=== PATIENT | female | born 1950 | race Caucasian/White ===

== ENCOUNTER 2017-10-03 13:37 | Inpatient (IN) ==
[2017-10-03] MEDS ORDERED: *HR* FentaNYL (PF) 100 MCG/2 ML VIAL ONE (13:52)
--- NOTE | 2017-10-03 13:55 | Emergency Department Note ---
Disposition Clinical Impression: Acute pyelonephritis UTI (urinary tract infection) Qualifiers: Urinary tract infection type: site unspecified Hematuria presence: with hematuria Qualified Code(s): N39.0 - Urinary tract infection, site not specified Disposition: Admitted As Inpatient Abdominal Pain HPI - General Chief Complaint: ED Abdominal Pain Stated Complaint: abd pain/burning with urinaiton Time Seen by Provider: 10/03/17 13:43 Source: patient Mode of arrival: ambulatory Limitations: no limitations Nursing Notes Reviewed: Yes Vital Signs Reviewed: Yes - History of Present Illness HPI Narrative: 67-year-old insulin-dependent diabetic presents with about a week of dysuria, left back pain and abdominal pain. Lower quadrant. Patient has a history of fever and chills as well. Patient's concerned that she might have UTI. Patient has been having worsening dysuria. She states her pain in her back and in her left lower quadrant and suprapubic is at 8 out of 10 and worse with urination.denies diarrhea nausea vomiting constipation. Pt Subjective Complaint: abdominal pain Onset (ago): day(s) Consistency: intermittent Location: L flank Pain Severity: severe Pain Scale: 10 Quality: cramping, aching Radiation: LLQ Migration to: suprapubic Improves with: nothing Worsens with: nothing Associated symptoms: Reports: nausea. Denies: vomiting, diarrhea, fever, chills , hematemesis, hematochezia Treatments prior to arrival: none - Related Data Home Medications Medication Instructions Recorded Confirmed Amlodipine Besylate 10 mg PO DAILY 10/03/17 10/03/17 Atorvastatin Calcium [Lipitor] 80 mg PO HS 10/03/17 10/03/17 Ezetimibe [Zetia] 10 mg PO DAILY 10/03/17 10/03/17 Febuxostat [Uloric] 80 mg PO DAILY 10/03/17 10/03/17 Furosemide [Lasix] 40 mg PO BID 10/03/17 10/03/17 Insulin ASPART [NovoLOG] 45 - 50 unit SQ TID 10/03/17 10/03/17 Insulin DETEMIR [Levemir] 20 unit SQ QAM 10/03/17 10/03/17 Insulin DETEMIR [Levemir] 80 unit SQ QPM 10/03/17 10/03/17 Labetalol HCl 300 mg PO BID 10/03/17 10/03/17 Levothyroxine Sodium [Levoxyl] 112 mcg PO DAILY 10/03/17 10/03/17 Linagliptin [Tradjenta] 5 mg PO DAILY 10/03/17 10/03/17 Losartan [Cozaar] 25 mg PO DAILY 10/03/17 10/03/17 Tolterodine Tartrate [Detrol] 2 mg PO BID 10/03/17 10/03/17 hydroCHLOROthiazide 25 mg PO DAILY 10/03/17 10/03/17 [Hydrochlorothiazide] Allergies Allergy/AdvReac Type Severity Reaction Status Date / Time ciprofloxacin [From Cipro] Allergy Vomiting Verified 09/30/15 09:45 All systems ED: reviewed and negative except as stated. Review of Systems: As Per HPI Constitutional: Reports: fever, chills Eyes: Denies: eye pain ENT ED: Denies: ear pain Cardiovascular: Denies: chest pain Respiratory: Denies: cough Gastrointestinal: Reports: as per HPI, abdominal pain, nausea. Denies: vomiting , hematemesis, melena Genitourinary: Reports: as per HPI, urgency, dysuria. Denies: frequency, hematuria Musculoskeletal: Denies: back pain, neck pain Integumentary: Denies: rash Neurological: Denies: headache Abdominal Pain PMH - Past Medical History Medical history: Reports: diabetes, hypertension, renal disease, other Female Surgical History: Reports: appendectomy, herniorrhaphy, knee replacement , other Psychiatric history: Reports: no psych history - Social History Smoking status: Former smoker Alcohol use: Reports: none Drug use: Reports: none Physical Exam Constitutional: Afebrile, tachypnea, mildly hypertensive. Obese middle-aged female in mod abdominal back pain HEENT: NCAT, sclera anicteric Neck: normal inspection, neck is supple, trachea midline Resp: normal chest inspection, CTA bilaterally, no resp distress CV: RRR, no m/g/r GI: normal inspection, Soft, mildly obese, mild suprapubic tenderness palpation no hepatosplenomegaly, BS x 4 quadrants, negative Botello's Sign, no tenderness at McBurney' point, Negative Rovsing's Back: normal inspection, positive left CVA tenderness Neuro: A&O3, no gross motor or sensory deficits bilaterally MSK: normal inspection, bilateral UE and LE with normal ROM Skin: No rashes, skin warm, dry, intact - General Limitations: no limitations General appearance: alert, in no apparent distress Course Course Narrative: 67-year-old female with concerns for possible diverticulitis versus pyelonephritis, CT scan basic lab work CBC BMP urinalysis were ordered, as well as pain medication for the patient, she appears like a possible admission depending on what the CT scan will find. CT noncontrast abdomen and pelvis ordered because of patient habitus. - Reevaluation(s) Reevaluation #1: Patient's evidence of pyelonephritis, urinary tract infection positive left flank pain, admitted to the hospitalist service Dr. Cazares Vital Signs Temperature 98.3 F 10/03/17 13:38 Pulse Rate 88 10/03/17 13:38 Respiratory Rate 18 10/03/17 13:38 Blood Pressure 194/75 10/03/17 13:38 O2 Sat by Pulse Oximetry 96 10/03/17 13:38 Temperature 98.0 F 10/03/17 16:45 Pulse Rate 92 10/03/17 16:45 Respiratory Rate 15 10/03/17 16:45 Blood Pressure 134/81 10/03/17 16:45 O2 Sat by Pulse Oximetry 94 10/03/17 16:45 Oxygen Delivery Oxygen Delivery Room Air Abdominal Pain - Differential Diagnosis Differential Diagnosis: Likely: abdominal pain non-specific, acute appendicitis , diverticulitis, diverticulosis - Medical Records Medical records reviewed: Yes I reviewed the patient's medical records. - Lab Data Lab results reviewed: Yes I reviewed the patient's lab results. Result diagrams: 10/03/17 13:55 10/03/17 13:55 Lab Results 10/03/17 10/03/17 10/03/17 Range/Units 13:55 13:55 13:55 WBC 13.3 H (4.3-11.1) K/mcL RBC 4.46 (3.82-4.97) M/mcL Hgb 12.7 (11.5-15.4) g/dL Hct 38.7 (35.3-44.9) % MCV 86.8 (83.0-100.0) fL MCH 28.5 (28.0-33.3) pg MCHC 32.8 (31.6-35.5) g/dL RDW 14.6 H (11.5-14.5) % Plt Count 362 (140-400) K/mcL MPV 9.9 (9.4-12.4) fL Immature Gran % 0.5 (0-4) % Seg Neutrophils % 84.2 % Lymphocytes % 8.9 % Monocytes % 5.3 % Eosinophils % 0.9 % Basophils % 0.2 % Neutrophils # 11.2 H (1.6-8.9) K/mcL Lymphocytes # 1.2 (0.6-4.6) K/mcL Monocytes # 0.7 (0.0-1.3) K/mcL Eosinophils # 0.1 (0.0-0.6) K/mcL Basophils # 0.0 (0.0-0.2) K/mcL Immature Plt Fraction 2.3 (1.1-6.1) % Sodium 136 (136-145) mEq/L Potassium 3.8 (3.5-5.1) mEq/L Chloride 98 (98-107) mEq/L Carbon Dioxide 26 (23-29) mEq/L BUN 57 H (8-23) mg/dL Creatinine 1.72 H (0.60-1.20) mg/dL Est GFR ( Amer) 36 L (> 60) Est GFR (Non-Af Amer) 30 L (> 60) BUN/Creatinine Ratio 33 H (6-26) Glucose 397 H (70-105) mg/dL Calculated Osmolality 314 H (280-300) Lactic Acid (0.5-2.2) mmol/L Calcium 10.2 (8.6-10.3) mg/dL Total Bilirubin 0.8 (0.3-1.0) mg/dL Direct Bilirubin 0.1 (0.0-0.2) mg/dL Indirect Bilirubin 0.7 (0.0-1.2) mg/dL AST 15 (13-39) Units/L ALT 18 (7-52) Units/L Alkaline Phosphatase 87 (34-104) Units/L Troponin I < 0.03 (< 0.04) ng/mL Serum Total Protein 6.8 (6.4-8.9) g/dL Albumin 3.9 (3.5-5.7) g/dL Globulin 2.9 (2.4-3.5) g/dL Albumin/Globulin Ratio 1.3 (1.1-2.2) Amylase 28 L (29-103) Units/L Lipase 64 (11-82) Units/L Urine Color (Yellow) Urine Clarity (Clear) Urine pH (5.0-8.0) pH Units Ur Specific [place] (1.010-1.025) Urine Protein (Neg-Trace) mg/dL Urine Glucose (UA) (Normal) mg/dL Urine Ketones (Negative) mg/dL Urine Blood (Negative) Urine Nitrite (Negative) Urine Bilirubin (Negative) Urine Urobilinogen (Normal) mg/dL Ur Leukocyte Esterase (Negative) Urine Microscopic RBC (0-3) per hpf Urine Microscopic WBC (0-3) per hpf Ur Squamous Epith Cells (None-Few) per lpf Urine Bacteria (None-Few) per hpf Ur Culture Indicated? (NO) 10/03/17 10/03/17 Range/Units 14:24 15:26 WBC (4.3-11.1) K/mcL RBC (3.82-4.97) M/mcL Hgb (11.5-15.4) g/dL Hct (35.3-44.9) % MCV (83.0-100.0) fL MCH (28.0-33.3) pg MCHC (31.6-35.5) g/dL RDW (11.5-14.5) % Plt Count (140-400) K/mcL MPV (9.4-12.4) fL Immature Gran % (0-4) % Seg Neutrophils % % Lymphocytes % % Monocytes % % Eosinophils % % Basophils % % Neutrophils # (1.6-8.9) K/mcL Lymphocytes # (0.6-4.6) K/mcL Monocytes # (0.0-1.3) K/mcL Eosinophils # (0.0-0.6) K/mcL Basophils # (0.0-0.2) K/mcL Immature Plt Fraction (1.1-6.1) % Sodium (136-145) mEq/L Potassium (3.5-5.1) mEq/L Chloride (98-107) mEq/L Carbon Dioxide (23-29) mEq/L BUN (8-23) mg/dL Creatinine (0.60-1.20) mg/dL Est GFR ( Amer) (> 60) Est GFR (Non-Af Amer) (> 60) BUN/Creatinine Ratio (6-26) Glucose (70-105) mg/dL Calculated Osmolality (280-300) Lactic Acid 2.7 H (0.5-2.2) mmol/L Calcium (8.6-10.3) mg/dL Total Bilirubin (0.3-1.0) mg/dL Direct Bilirubin (0.0-0.2) mg/dL Indirect Bilirubin (0.0-1.2) mg/dL AST (13-39) Units/L ALT (7-52) Units/L Alkaline Phosphatase (34-104) Units/L Troponin I (< 0.04) ng/mL Serum Total Protein (6.4-8.9) g/dL Albumin (3.5-5.7) g/dL Globulin (2.4-3.5) g/dL Albumin/Globulin Ratio (1.1-2.2) Amylase (29-103) Units/L Lipase (11-82) Units/L Urine Color Dark Yellow (Yellow) Urine Clarity Turbid A (Clear) Urine pH 6.5 (5.0-8.0) pH Units Ur Specific [place] 1.021 (1.010-1.025) Urine Protein 100 H (Neg-Trace) mg/dL Urine Glucose (UA) 500 H (Normal) mg/dL Urine Ketones Negative (Negative) mg/dL Urine Blood Large H (Negative) Urine Nitrite Positive A (Negative) Urine Bilirubin Negative (Negative) Urine Urobilinogen Normal (Normal) mg/dL Ur Leukocyte Esterase Large H (Negative) Urine Microscopic RBC 50-100 H (0-3) per hpf Urine Microscopic WBC TNTC H (0-3) per hpf Ur Squamous Epith Cells Many H (None-Few) per lpf Urine Bacteria Moderate H (None-Few) per hpf Ur Culture Indicated? NO. (NO) - Radiology Data Radiology results reviewed: Yes I reviewed the patient's radiology results. Abdomen/Pelvis CT 10/03/17 13:53 IMPRESSION: 1. No CT evidence of an acute intra-abdominal or intrapelvic process. 2. Hepatic steatosis. 3. Calcific atherosclerosis. 4. Bilateral L5 spondylolysis with grade 2 spondylolisthesis L5 on S1. 5. Cholelithiasis. No acute inflammatory changes evident. D/ / Kevin Cabrales / Kevin Cabrales Interpreting Provider: Kevin Cabrales - EKG Data EKG attestation: Yes I reviewed and interpreted this EKG. EKG shows normal: sinus rhythm Rate: normal (84 bpm [place] with 221 QRS [address] segment elevations or depressions.)
[2017-10-03] MEDS ORDERED: Ondansetron 4 MG/2 ML VIAL IVP ONE (13:57)
[2017-10-03] MEDS ORDERED: 0.9 % Sodium Chloride 1,000 ML IVC ONE ×2 (13:57→22:19)
[2017-10-03] MEDS ORDERED: *HR* FentaNYL (PF) 100 MCG/2 ML VIAL IVP ONE ×2 (13:57→15:27)
[2017-10-03] MEDS ORDERED: *HR* OxyCODONE/APAP 5/325 TABLET PO ONE (13:57)
--- NOTE | 2017-10-03 14:05 | Emergency Department Note ---
START Narrative - START START: I examined this patient and my medical decision-making was reviewed with the emergency medicine resident. I agree with the documented findings, disposition and treatment plan as described except to the extent set forth below. Patient seen with emergency medicine resident Dr. YUNIER HOYT, Please see a copy of his note for details of the H&P, ED evaluation, management and disposition. I have independently evaluated the patient and confirmed appropriate portions of the history and physical exam. Briefly: 67-year-old obese female presents via wheelchair from the waiting room with her spouse. Approximately one week of abdominal pain especially in the lower quadrants and some dysuria. No vomiting chest pain or shortness breath. She does have voluntary guarding the lower quadrants but no rebound. Patient with abdominal pelvic CT analgesics screening labs and urinalysis. Disposition pending
[2017-10-03 14:14] LABS: Basophils % 0.2 %; Eosinophils # 0.1 K/mcL (0.0-0.6); Eosinophils % 0.9 %; Hematocrit 38.7 % (35.3-44.9); Hemoglobin 12.7 g/dL (11.5-15.4); Immature Granulocytes % 0.5 % (0-4); Immature Platelets 2.3 % (1.1-6.1); Lymphocytes # 1.2 K/mcL (0.6-4.6); Lymphocytes % 8.9 %; Mean Corpuscular HGB Conc 32.8 g/dL (31.6-35.5); Mean Corpuscular Hemoglobin 28.5 pg (28.0-33.3); Mean Corpuscular Volume 86.8 fL (83.0-100.0); Mean Platelet Volume 9.9 fL (9.4-12.4); Monocytes # 0.7 K/mcL (0.0-1.3); Monocytes % 5.3 %; Neutrophils # 11.2 K/mcL (1.6-8.9); Platelet Count 362 K/mcL (140-400); Red Blood Count 4.46 M/mcL (3.82-4.97); Red Cell Distribution Width 14.6 % (11.5-14.5); Segmented Neutrophils % 84.2 %
[2017-10-03 14:35] LABS: Bilirubin,Urine Negative (Negative); Blood,Urine Large (Negative); Clarity,Urine Turbid (Clear); Color,Urine Dark Yellow (Yellow); Glucose,Urine (UA) 500 mg/dL (Normal); Ketones,Urine Negative (Negative); Leukocyte Esterase,Urine Large (Negative); Nitrite,Urine Positive (Negative); PH,Urine 6.5 pH Units (5.0-8.0); Protein,Urine 100 mg/dL (Neg-Trace); Specific Gravity,Urine 1.021 (1.010-1.025); Urobilinogen,Urine Normal (Normal)
[2017-10-03 14:36] LABS: Bacteria,Urine Moderate per hpf (None-Few); RBC,Urine 50-100 per hpf (0-3); Squamous Epithelial Cell,Urine Many per lpf (None-Few); WBC,Urine TNTC per hpf (0-3)
[2017-10-03 15:02] LABS: Albumin 3.9 g/dL (3.5-5.7); Albumin/Globulin Ratio 1.3 (1.1-2.2); Bilirubin,Direct 0.1 mg/dL (0.0-0.2); Bilirubin,Indirect 0.7 mg/dL (0.0-1.2); Bilirubin,Total 0.8 mg/dL (0.3-1.0); Calcium 10.2 mg/dL (8.6-10.3); Globulin 2.9 g/dL (2.4-3.5); Potassium 3.8 mEq/L (3.5-5.1); Total Protein 6.8 g/dL (6.4-8.9)
[2017-10-03] MEDS ORDERED: *HR* OxyCODONE Immed Rel 5 MG TABLET PO ONE (15:27)
[2017-10-03] MEDS ORDERED: Acetaminophen 325 MG TABLET PO PRN (15:33)
[2017-10-03] MEDS ORDERED: *HR* Dextrose 50 % in Water (Syg) 50 ML SYRINGE IVP PRN (15:33)
[2017-10-03] MEDS ORDERED: Dextrose Gel 15 GM/37.5 ML TUBE PO PRN ×2 (15:33)
[2017-10-03] MEDS ORDERED: Naloxone 0.4 MG/ML INJ IVP PRN (15:33)
[2017-10-03] MEDS ORDERED: D5% in Water 1,000 ML IVC PRN (15:33)
--- NOTE | 2017-10-03 15:48 | Internal Med History&Physical ---
Date of Encounter: 10/03/17 Time of Encounter: 15:45 Assessment and Plan (1) UTI (urinary tract infection) Current visit: Yes Status: Acute Admit the patient to hospitalist. Start ceftriaxone. Check lactic acid. Hold off IV fluids for now. Patient is hemodynamically stable. Follow up on cultures. Qualifiers: Urinary tract infection type: site unspecified Hematuria presence: with hematuria Qualified Code(s): N39.0 - Urinary tract infection, site not specified; R31.9 - Hematuria, unspecified; R31.9 - Hematuria, unspecified (2) Diabetes mellitus Current visit: Yes Status: Acute We will put the patient on her home Levemir. Start insulin sliding scale. Continue Accu-Cheks. The patient's glucose is elevated. 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 We will continue to monitor. (5) Hypothyroidism Current visit: Yes Status: Acute Continue home levothyroxine. Qualifiers: Hypothyroidism type: unspecified Qualified Code(s): E03.9 - Hypothyroidism , unspecified (6) Morbid obesity with BMI of 50.0-59.9, adult Current visit: Yes Status: Acute counseled. Dietary consult (7) DVT prophylaxis Current visit: Yes Status: Acute Heparin subcutaneous Internal Medicine - H&P: HPI Chief complaint: abdominal pain Admitted From: Home Plans for Post Hospital Care: Home History of present illness: Ms. Duckworth is a 67 year old female with PMH of hypothyroidism, DM, CKD3, HTN, morbid obesity who presents with abdominal pain and dysuria x1 week. pain is at the lower abdomen and goes to the left flank. Has significant burning and frequency as well. afebrile but feels cold. In the ED, patient was hemodynamically stable. CT A/P done with no acute findings. UA + for UTI. labs significant for WBC count of 13K, elevated creatinine consistent with baseline, glucose of 397. Given Hemodynamically stable. Afebrile. No fever/chills/nausea/ vomiting/chest pain/SOB/diarrhea/constipation/neurological symptoms. Past Med Surg Social Fam HX - Past Medical History Medical history: diabetes, hypertension, renal disease, other Psychiatric history: no psych history - Past Surgical History Surgical History: appendectomy, herniorrhaphy, knee replacement - Social History Smoking Status: Former smoker Smokeless Tobacco Status: No Alcohol use: none Drug use: none Internal Medicine - H&P: Meds Amlodipine Besylate 10 mg PO DAILY 10/03/17 [History] Atorvastatin Calcium [Lipitor] 80 mg PO HS 10/03/17 [History] Ezetimibe [Zetia] 10 mg PO DAILY 10/03/17 [History] Febuxostat [Uloric] 80 mg PO DAILY 10/03/17 [History] Furosemide [Lasix] 40 mg PO BID 10/03/17 [History] Insulin ASPART [NovoLOG] 45 - 50 unit SQ TID 10/03/17 [History] Insulin DETEMIR [Levemir] 20 unit SQ QAM 10/03/17 [History] Insulin DETEMIR [Levemir] 80 unit SQ QPM 10/03/17 [History] Labetalol HCl 300 mg PO BID 10/03/17 [History] Levothyroxine Sodium [Levoxyl] 112 mcg PO DAILY 10/03/17 [History] Linagliptin [Tradjenta] 5 mg PO DAILY 10/03/17 [History] Losartan [Cozaar] 25 mg PO DAILY 10/03/17 [History] Tolterodine Tartrate [Detrol] 2 mg PO BID 10/03/17 [History] hydroCHLOROthiazide [Hydrochlorothiazide] 25 mg PO DAILY 10/03/17 [History] 3 Allergy/AdvReac Type Severity Reaction Status Date / Time ciprofloxacin [From Cipro] Allergy Vomiting Verified 09/30/15 09:45 All Systems PM: A 10-system review of systems was performed and is negative for pertinent findings except as documented above in the HPI. Review of systems: All systems reviewed are negative except as mentioned above - Constitutional Vitals: Temp Pulse Resp BP Pulse Ox 98.3 F 92 22 157/80 97 10/03/17 13:38 10/03/17 14:35 10/03/17 14:35 10/03/17 14:35 10/03/17 14:35 Exam: GEN: NAD HEENT: AT, NC, No cyanosis, oral mucosa is moist, No JVD Lymphatics: No lymphadenoapthy Eyes: Extrocular muscles intact, anicteric CVS:RRR. S1, S2, No m/r/g RESP: CTAB ABD: Soft, hypogastric tenderness. Morbidly obese, ND, +BS EXT: No edema, No rashes, 2+ DP NEURO: Nonfocal, CN II-XII intact, No focal motor or sensory deficits Psych: Cooperative, Not anxious or depressed Internal Med - H&P Results - Labs CBC & Chem 7: 10/03/17 13:55 10/03/17 13:55 Labs: Short CBC 10/03/17 Range/Units 13:55 WBC 13.3 H (4.3-11.1) K/mcL Hgb 12.7 (11.5-15.4) g/dL Hct 38.7 (35.3-44.9) % Plt Count 362 (140-400) K/mcL Neutrophils # 11.2 H (1.6-8.9) K/mcL BMP 10/03/17 13:55 Sodium 136 Potassium 3.8 Chloride 98 Carbon Dioxide 26 BUN 57 H Creatinine 1.72 H Glucose 397 H Calcium 10.2 Cardiac Enzymes 10/03/17 Range/Units 13:55 Troponin I < 0.03 (< 0.04) ng/mL Liver Function 10/03/17 Range/Units 13:55 Total Bilirubin 0.8 (0.3-1.0) mg/dL Direct Bilirubin 0.1 (0.0-0.2) mg/dL AST 15 (13-39) Units/L ALT 18 (7-52) Units/L Alkaline Phosphatase 87 (34-104) Units/L Albumin 3.9 (3.5-5.7) g/dL Urine 10/03/17 Range/Units 14:24 Urine Color Dark Yellow (Yellow) Urine Clarity Turbid A (Clear) Urine pH 6.5 (5.0-8.0) pH Units Ur Specific [place] 1.021 (1.010-1.025) Urine Protein 100 H (Neg-Trace) mg/dL Urine Glucose (UA) 500 H (Normal) mg/dL - Impressions ITS Impressions Abdomen/Pelvis CT 10/03/17 13:53 IMPRESSION: 1. No CT evidence of an acute intra-abdominal or intrapelvic process. 2. Hepatic steatosis. 3. Calcific atherosclerosis. 4. Bilateral L5 spondylolysis with grade 2 spondylolisthesis L5 on S1. 5. Cholelithiasis. No acute inflammatory changes evident. D/ / Kevin Cabrales / Kevin Cabrales Interpreting Provider: Kevin Cabrales
[2017-10-03] MEDS: Insulin LISPRO 300 UNITS/3 ML VIAL SQ SCH ×2 (17:56→20:56)
[2017-10-03] MEDS ORDERED: Insulin DETEMIR 100 UNIT/ML X5UNITS SQ SCH (18:00)
[2017-10-03] MEDS ORDERED: cefTRIAXone 2,000 MG in Water for inj. (sterile) 20 ML 20 ML IVP ONE (18:00)
[2017-10-03] MEDS: Furosemide 40 MG TABLET PO SCH (20:56)
[2017-10-03] MEDS: *HR* Heparin 5,000 UNIT/ML VIAL SQ SCH (20:56)
--- NOTE | 2017-10-03 22:21 | Event Note ---
Date of Encounter: 10/03/17 Time of Encounter: 22:20 Lactic acid check came back at 2.7. Will bolus 1 L NS and start maintenance at 100 cc/hr. Repeat lactic acid in am.
[2017-10-03] MEDS: 0.9 % Sodium Chloride 1,000 ML IVC SCH (22:32)
[2017-10-04 05:02] LABS: Basophils % 0.3 %; Eosinophils # 0.1 K/mcL (0.0-0.6); Eosinophils % 1.2 %; Hematocrit 33.9 % (35.3-44.9); Hemoglobin 11.2 g/dL (11.5-15.4); Immature Granulocytes % 0.5 % (0-4); Lymphocytes # 1.5 K/mcL (0.6-4.6); Lymphocytes % 15.6 %; Mean Corpuscular Hemoglobin 28.6 pg (28.0-33.3); Mean Corpuscular Volume 86.5 fL (83.0-100.0); Mean Platelet Volume 9.6 fL (9.4-12.4); Monocytes # 0.7 K/mcL (0.0-1.3); Monocytes % 7.7 %; Platelet Count 272 K/mcL (140-400); Red Blood Count 3.92 M/mcL (3.82-4.97); Red Cell Distribution Width 14.8 % (11.5-14.5); Segmented Neutrophils % 74.7 %
[2017-10-04 05:17] LABS: Calcium 9.1 mg/dL (8.6-10.3); Magnesium 2.1 mg/dL (1.6-2.6); Potassium 3.4 mEq/L (3.5-5.1)
[2017-10-04] MEDS: *HR* Heparin 5,000 UNIT/ML VIAL SQ SCH ×3 (05:50→22:06)
[2017-10-04] MEDS: cefTRIAXone 1,000 MG in Water for inj. (sterile) 20 ML 10 ML IVP SCH (08:24)
[2017-10-04] MEDS: hydroCHLOROthiazide 25 MG TABLET PO SCH (08:25)
[2017-10-04] MEDS: Furosemide 40 MG TABLET PO SCH ×2 (08:25→22:06)
[2017-10-04] MEDS: amLODIPine 5 MG TABLET PO SCH (08:25)
[2017-10-04] MEDS: Insulin DETEMIR 100 UNIT/ML X5UNITS SQ SCH (08:26)
[2017-10-04] MEDS: (Ezetimibe [Zetia] 10 MG) PO SCH (08:26)
[2017-10-04] MEDS: (Febuxostat [Uloric] 80 MG) PO SCH (08:26)
[2017-10-04] MEDS: Insulin LISPRO 300 UNITS/3 ML VIAL SQ SCH ×4 (08:26→22:08)
[2017-10-04] MEDS: 0.9 % Sodium Chloride 1,000 ML IVC SCH (08:26)
--- NOTE | 2017-10-04 09:35 | Electrocardiograph Report ---
[place] [id number] Test Date: 2017-10-03 Pat Name: Christine Duckworth Department: 103 Room: 3A44 Gender: F Warehouse Analyst: JANET : 1950 Requested By: Rojelio Larsen Order Number: [id number] Reading MD: Vincenzo Patterson DO Measurements Intervals [place] Rate: 84 P: 52 DE: 221 QRS: -29 QRSD: 114 T: 75 QT: 362 QTc: 403 Interpretive Statements SINUS RHYTHM WITH FIRST DEGREE AV BLOCK POSSIBLE INFERIOR MYOCARDIAL INFARCTION, PROBABLY OLD Electronically Signed On 10-04-2017 9:34:02 EST by Vincenzo Patterson DO
--- NOTE | 2017-10-04 10:29 | Internal Med Progress Note ---
<Abdullahi Luna - Last Filed: 10/04/17 14:08> Date of Encounter: 10/04/17 Time of Encounter: 08:55 - Assessment and plan (1) UTI (urinary tract infection) Current Visit: Yes Status: Acute Assessment and plan: LLQ and L flank pain with associated dysuria. Patient notes symptoms at home for the past week, came to the ED because her was concerned she was getting worse. UA done in ED showing blood, protein, glucose, nitrates, leukocyte esterase, WBCs and bacteria; however many squamous epith ells noted. Urine culture sent. Patient was started on Rocephin, noting some improvement of dysuria. WBC improved from 13.3 to 9.4, Lactic Acid improved from 2.7 to 1.9 (careful with IVFs as patient notes issue with retaining fluid and is on daily lasix). -If improvement tomorrow, patient can likely be discharged home. Update: current urine culture growing GNR. Per past urine culture patient grew E. coli in Sep 2015 that was [place]ingo-sensitive. Qualifiers: Urinary tract infection type: site unspecified Hematuria presence: with hematuria Qualified Code(s): N39.0 - Urinary tract infection, site not specified (2) Diabetes mellitus Current Visit: Yes Status: Acute Assessment and plan: Continue home basal insulin + SSI. Qualifiers: Diabetes mellitus type: type 2 Diabetes mellitus complication status: with kidney complications Diabetes mellitus complication detail: with chronic kidney disease Diabetes mellitus [facility] insulin use: with terminal worker use Chronic kidney disease stage: stage 3 (moderate) Qualified Code(s): E11.22 - Type 2 diabetes mellitus with diabetic chronic kidney disease; N18.3 - Chronic kidney disease, stage 3 (moderate); N18.3 - Chronic kidney disease, stage 3 ( moderate); Z79.4 - adjunct faculty for medical terminology (current) use of insulin; Z79.4 - adjunct faculty for medical terminology ( current) use of insulin; Z79.4 - shelter (current) use of insulin; Z79.4 - shelter (current) use of insulin (3) Hypertension Current Visit: Yes Status: Acute Assessment and plan: BP well controlled, continue home medications. Qualifiers: Hypertension type: essential hypertension Qualified Code(s): I10 - Essential (primary) hypertension (4) CKD (chronic kidney disease) stage 3, GFR 30-59 ml/min Current Visit: Yes Status: Acute Assessment and plan: Stable at baseline, continue home medications. (5) Hypothyroidism Current Visit: Yes Status: Acute Assessment and plan: Cont home medication. Qualifiers: Hypothyroidism type: unspecified Qualified Code(s): E03.9 - Hypothyroidism , unspecified (6) Morbid obesity with BMI of 50.0-59.9, adult Current Visit: Yes Status: Chronic Assessment and plan: Counseled, dietary consulted and spoke to patient. (7) DVT prophylaxis Current Visit: Yes Status: Acute Assessment and plan: SQ heparin - Time Spent With Patient less than 15 minutes - Subjective Interval history: Patient notes continued pain in her left lower quadrant, radiating into her left flank. Noted continued dysurina, denies hematuria. Denies diarrhea, nausea , vomiting. Notes occasional shortness of breath that is chronic. Vitals essentially normal. Patient notes she is usually on lasix BID for edema, may to watch IVFs. - Constitutional Vitals: Temp Pulse Resp BP Pulse Ox 97.9 F 75 16 115/65 93 10/04/17 06:36 10/04/17 06:36 10/04/17 06:36 10/04/17 06:36 10/04/17 06:36 General appearance: Present: cooperative, A&O X 3, morbidly obese, pleasant, no acute distress, answers questions appropriately - Head Head exam: Present: atraumatic, normocephalic - Eye Eye exam: Present: EOMI - Neck Neck exam general surgery: Present: full ROM, supple - Respiratory Respiratory exam: Present: decreased breath sounds, CTAB. Absent: accessory muscle use, rales, rhonchi, wheezes - Cardiovascular Cardiovascular exam: Present: distant heart sounds, RRR, +S1, +S2. Absent: diastolic murmur, gallop, rubs, systolic murmur - GI/Abdominal GI/Abdominal exam: Present: normal bowel sounds, soft, tenderness (Notes tender to palpation of Left CVA), no peritoneal signs. Absent: distended - Extremities Exam Extremities exam: Present: pedal edema (bilateral edema vs obesity), warm. Absent: calf tenderness, cyanotic, tenderness - Neurological Exam Neurological exam: Present: alert, oriented X3, no focal deficits. Absent: facial droop, speech deficit - Skin Skin exam: Present: dry, intact Internal Medicine: Result - Labs CBC & Chem 7: 10/04/17 04:54 10/04/17 04:54 Labs: Short CBC 10/04/17 Range/Units 04:54 WBC 9.4 (4.3-11.1) K/mcL Hgb 11.2 L D (11.5-15.4) g/dL Hct 33.9 L (35.3-44.9) % Plt Count 272 (140-400) K/mcL Neutrophils # 7.0 (1.6-8.9) K/mcL BMP 10/04/17 04:54 Sodium 137 Potassium 3.4 L Chloride 102 Carbon Dioxide 24 BUN 49 H Creatinine 1.53 H Glucose 300 H Calcium 9.1 Consult Discharge Plan - Plan Referrals: Howard bright MD [Primary Care Provider] - <Gonzalo Preston - Last Filed: 10/04/17 17:09> Date of Encounter: 10/04/17 - Assessment and plan (1) UTI (urinary tract infection) Current Visit: Yes Status: Acute Qualifiers: Urinary tract infection type: acute cystitis Hematuria presence: with hematuria Qualified Code(s): N30.01 - Acute cystitis with hematuria (2) Diabetes mellitus Current Visit: Yes Status: Acute Qualifiers: Diabetes mellitus type: type 2 Diabetes mellitus complication status: with kidney complications Diabetes mellitus complication detail: with chronic kidney disease Diabetes mellitus terminal worker insulin use: with terminal worker use Chronic kidney disease stage: stage 3 (moderate) Qualified Code(s): E11.22 - Type 2 diabetes mellitus with diabetic chronic kidney disease; N18.3 - Chronic kidney disease, stage 3 (moderate); N18.3 - Chronic kidney disease, stage 3 ( moderate); Z79.4 - adjunct faculty for medical terminology (current) use of insulin; Z79.4 - shelter ( current) use of insulin; Z79.4 - shelter (current) use of insulin; Z79.4 - shelter (current) use of insulin (3) Hypertension Current Visit: Yes Status: Acute Qualifiers: Hypertension type: essential hypertension Qualified Code(s): I10 - Essential (primary) hypertension (4) Hypothyroidism Current Visit: Yes Status: Acute Qualifiers: Hypothyroidism type: acquired Qualified Code(s): E03.9 - Hypothyroidism, unspecified (5) Morbid obesity with BMI of 50.0-59.9, adult Current Visit: Yes Status: Chronic - Time Spent With Patient My time was 39min - Constitutional Vitals: Temp Pulse Resp BP Pulse Ox 98.3 F 75 15 108/65 93 10/04/17 14:55 10/04/17 14:55 10/04/17 14:55 10/04/17 14:55 10/04/17 14:55 Internal Medicine: Result - Labs CBC & Chem 7: 10/04/17 04:54 10/04/17 04:54 Labs: Short CBC 10/04/17 Range/Units 04:54 WBC 9.4 (4.3-11.1) K/mcL Hgb 11.2 L D (11.5-15.4) g/dL Hct 33.9 L (35.3-44.9) % Plt Count 272 (140-400) K/mcL Neutrophils # 7.0 (1.6-8.9) K/mcL BMP 10/04/17 04:54 Sodium 137 Potassium 3.4 L Chloride 102 Carbon Dioxide 24 BUN 49 H Creatinine 1.53 H Glucose 300 H Calcium 9.1 - Attending Attestation I examined this patient and my medical decision-making was reviewed with the Resident Physician on 10/04/17. I agree with the documented findings, disposition and treatment plan as described except to the extent set forth below. Ms Duckworth is currently admitted for UTI. She remains moderate to high risk due to potential for worsening clinical status. Ms Duckworth still feels bad. She has lower abd pain but says it is a little better today. No fever. Has cough and headache as well. No GI issues. Exam alert Comfortable Mucus membranes dry Heart reg Lungs with occ rhonchi Abd with lower abd discomfort without peritoneal signs. Urine cx - GNR I/P 1. UTI - final ID and sens pending. 2. Abd pain due to UTI Further diagnoses and plan as above.
[2017-10-04 16:52] LABS: Adenovirus Not Detected (Not Detect); Bordetella Pertussis Not Detected (Not Detect); Chlamydophila pneumoniae Not Detected (Not Detect); Coronavirus 229E Not Detected (Not Detect); Coronavirus HKU1 Not Detected (Not Detect); Coronavirus NL63 Not Detected (Not Detect); Coronavirus OC43 Not Detected (Not Detect); Human Metapneumovirus Not Detected (Not Detect); Human Rhinovirus/Enterovirus Not Detected (Not Detect); Influenza A Subtype 2009 H1 Not Detected (Not Detect); Influenza A Untypeable Not Detected (Not Detect); Influenza B Not Detected (Not Detect); Mycoplasma pneumoniae Not Detected (Not Detect); Parainfluenza Virus 1 Not Detected (Not Detect); Parainfluenza Virus 2 Not Detected (Not Detect); Parainfluenza Virus 3 Not Detected (Not Detect); Parainfluenza Virus 4 Not Detected (Not Detect); Respiratory Syncytial Virus Not Detected (Not Detect)
[2017-10-04] MEDS ORDERED: Insulin DETEMIR 100 UNIT/ML X5UNITS SQ SCH (21:00)
[2017-10-05 03:35] LABS: Basophils % 0.3 %; Eosinophils # 0.2 K/mcL (0.0-0.6); Eosinophils % 2.2 %; Hematocrit 34.5 % (35.3-44.9); Hemoglobin 11.3 g/dL (11.5-15.4); Immature Granulocytes % 0.5 % (0-4); Lymphocytes # 1.8 K/mcL (0.6-4.6); Lymphocytes % 18.7 %; Mean Corpuscular HGB Conc 32.8 g/dL (31.6-35.5); Mean Corpuscular Hemoglobin 28.5 pg (28.0-33.3); Mean Corpuscular Volume 87.1 fL (83.0-100.0); Mean Platelet Volume 9.7 fL (9.4-12.4); Monocytes # 0.6 K/mcL (0.0-1.3); Monocytes % 6.3 %; Neutrophils # 6.8 K/mcL (1.6-8.9); Platelet Count 267 K/mcL (140-400); Red Blood Count 3.96 M/mcL (3.82-4.97); Red Cell Distribution Width 14.6 % (11.5-14.5)
[2017-10-05 04:04] LABS: Calcium 9.1 mg/dL (8.6-10.3); Potassium 3.2 mEq/L (3.5-5.1)
[2017-10-05] MEDS: *HR* Heparin 5,000 UNIT/ML VIAL SQ SCH (06:02)
[2017-10-05 07:30] VITALS: BP 117/56
[2017-10-05] MEDS: Insulin LISPRO 300 UNITS/3 ML VIAL SQ SCH ×2 (09:19→11:11)
[2017-10-05] MEDS: cefTRIAXone 1,000 MG in Water for inj. (sterile) 20 ML 10 ML IVP SCH (09:20)
[2017-10-05] MEDS: Insulin DETEMIR 100 UNIT/ML X5UNITS SQ SCH (09:20)
[2017-10-05] MEDS: Furosemide 40 MG TABLET PO SCH (09:22)
[2017-10-05] MEDS: amLODIPine 5 MG TABLET PO SCH (09:22)
[2017-10-05] MEDS: (Febuxostat [Uloric] 80 MG) PO SCH (09:22)
[2017-10-05] MEDS: (Ezetimibe [Zetia] 10 MG) PO SCH (09:22)
[2017-10-05] MEDS: hydroCHLOROthiazide 25 MG TABLET PO SCH (09:22)
--- NOTE | 2017-10-05 09:55 | Discharge Summary ---
<Abdullahi Luna - Last Filed: 10/05/17 10:55> - NOTES TO OUTPATIENT PROVIDER Notes to Outpatient Provider: Patient treated for E. coli UTI, to finish antibiotics outpatient. Date of Encounter: 10/05/17 Time of Encounter: 08:55 - Discharge Diagnosis (1) UTI (urinary tract infection) Priority: Primary Status: Acute Qualifiers: Urinary tract infection type: acute cystitis Hematuria presence: with hematuria Qualified Code(s): N30.01 - Acute cystitis with hematuria (2) Diabetes mellitus Priority: Secondary Status: Acute Qualifiers: Diabetes mellitus type: type 2 Diabetes mellitus complication status: with kidney complications Diabetes mellitus complication detail: with chronic kidney disease Diabetes mellitus patient safety coordinator insulin use: with [facility] use Chronic kidney disease stage: stage 3 (moderate) Qualified Code(s): E11.22 - Type 2 diabetes mellitus with diabetic chronic kidney disease; N18.3 - Chronic kidney disease, stage 3 (moderate); N18.3 - Chronic kidney disease, stage 3 ( moderate); Z79.4 - train reservation clerk (current) use of insulin; Z79.4 - group home ( current) use of insulin; Z79.4 - train reservation clerk (current) use of insulin; Z79.4 - train reservation clerk (current) use of insulin (3) Hypertension Priority: Secondary Status: Acute Qualifiers: Hypertension type: essential hypertension Qualified Code(s): I10 - Essential (primary) hypertension (4) CKD (chronic kidney disease) stage 3, GFR 30-59 ml/min Priority: Secondary Status: Acute (5) Hypothyroidism Priority: Secondary Status: Acute Qualifiers: Hypothyroidism type: acquired Qualified Code(s): E03.9 - Hypothyroidism, unspecified (6) Morbid obesity with BMI of 50.0-59.9, adult Priority: Secondary Status: Chronic (7) DVT prophylaxis Priority: Secondary Status: Acute Hospital course: Ms. Duckworth is a 67 year old female with PMH of hypothyroidism, DM, CKD3, HTN, morbid obesity. Admitted for UTI with hx of abdominal pain and dysuria x1 week. LLQ pain radiating into right flank and CVA; along with urinary burning and frequency as well. CT A/P done with no acute findings. Elevated WBC count of 13.3-> improved to 9.5, elevated creatinine consistent with baseline. Lactic acid slight elevated at 2.7, but improved with hydration/IVFs. UA positive for UTI, culture grew E. Coli resistant to augmentin and bactrim; patient treated with IV rocephin, plan to discharge on Keflex for 5 days. Patient notes shortness of breath at baseline with BiPAP at night. Patient noted to have increased work of breathing during stay that also improved. No supplemental O2 required. No acute findings and patient appears to be improving. Patient states she is comfortable transitioning treatment to outpatient. Plan for discharge today. Discharge discussed with: patient - Time Spent with Patient Total time spent providing and/or coordinating discharge services: Greater than 30 minutes (40mins) - Discharge Medications Prescriptions: Cephalexin [Keflex] 500 mg PO Q12H #10 capsule Home Medications: Amlodipine Besylate 10 mg PO DAILY 10/03/17 [History] Atorvastatin Calcium [Lipitor] 80 mg PO HS 10/03/17 [History] Ezetimibe [Zetia] 10 mg PO DAILY 10/03/17 [History] Febuxostat [Uloric] 80 mg PO DAILY 10/03/17 [History] Furosemide [Lasix] 40 mg PO BID 10/03/17 [History] Insulin ASPART [NovoLOG] 45 - 50 unit SQ TID 10/03/17 [History] Insulin DETEMIR [Levemir] 20 unit SQ QAM 10/03/17 [History] Insulin DETEMIR [Levemir] 80 unit SQ QPM 10/03/17 [History] Labetalol HCl 300 mg PO BID 10/03/17 [History] Levothyroxine Sodium [Levoxyl] 112 mcg PO DAILY 10/03/17 [History] Linagliptin [Tradjenta] 5 mg PO DAILY 10/03/17 [History] Losartan [Cozaar] 25 mg PO DAILY 10/03/17 [History] Tolterodine Tartrate [Detrol] 2 mg PO BID 10/03/17 [History] hydroCHLOROthiazide [Hydrochlorothiazide] 25 mg PO DAILY 10/03/17 [History] Cephalexin [Keflex] 500 mg PO Q12H #10 capsule 10/05/17 [Rx] Allergies/Adverse Reactions: 3 Allergy/AdvReac Type Severity Reaction Status Date / Time ciprofloxacin [From Cipro] Allergy Vomiting Verified 09/30/15 09:45 Date of admission: 10/03/17 16:01 Primary care physician: Howard Landis MD Discharging clinician: Gonzalo Preston Anticipated date of discharge: 10/05/17 - Constitutional Vitals: Temp Pulse Resp BP Pulse Ox 97.4 F L 71 14 117/56 96 10/05/17 07:27 10/05/17 07:27 10/05/17 07:27 10/05/17 07:27 10/05/17 07:27 General appearance: Present: cooperative, A&O X 3, morbidly obese, pleasant, no acute distress, answers questions appropriately - Head Head exam: Present: atraumatic, normocephalic - Eye Eye exam: Present: EOMI, conjuntiva pink, sclera anicteric - Neck Neck exam general surgery: Present: full ROM, supple, trachea midline - Respiratory Respiratory exam: Present: CTAB. Absent: accessory muscle use, rales, rhonchi, wheezes - Cardiovascular Cardiovascular exam: Present: RRR, +S1, +S2. Absent: diastolic murmur, gallop, rubs, systolic murmur - GI/Abdominal GI/Abdominal exam: Present: normal bowel sounds, soft, tenderness (LLQ, mild), no peritoneal signs. Absent: distended, firm, guarding, rebound - Extremities Exam Extremities exam: Absent: calf tenderness, tenderness - Neurological Exam Neurological exam: Present: alert, oriented X3, no focal deficits. Absent: facial droop, speech deficit - Skin Skin exam: Present: dry, intact - Patient Status Disposition: Home, Self-Care Condition: Good Functional capacity at discharge: independent ambulation Overall status at discharge: patient is back to baseline - Discharge Instructions Follow Up With: Howard Landis MD [Primary Care Provider] - Additional Instructions: Please complete antibiotic. Keflex 500mg capsule, Starting tomorrow 01/03/18, Take 1 capsule by mouth, twice daily for 5 days. Follow up with your primary care provider in the next 5-7 or sooner if needed. Return or seek medical care if new or worsening symptoms such as blood in your urine increase abdominal/back pain in severity or area, shortness of breath, or chest pain. - Diet and Activity Activity: increase activity as tolerated Diet: advance to your usual diet <Gonzalo Preston - Last Filed: 10/05/17 16:47> Date of Encounter: 10/05/17 - Discharge Diagnosis (1) UTI (urinary tract infection) Status: Acute Qualifiers: Urinary tract infection type: acute cystitis Hematuria presence: with hematuria Qualified Code(s): N30.01 - Acute cystitis with hematuria (2) Diabetes mellitus Status: Acute Qualifiers: Diabetes mellitus type: type 2 Diabetes mellitus complication status: with kidney complications Diabetes mellitus complication detail: with chronic kidney disease Diabetes mellitus patient safety coordinator insulin use: with patient safety coordinator use Chronic kidney disease stage: stage 3 (moderate) Qualified Code(s): E11.22 - Type 2 diabetes mellitus with diabetic chronic kidney disease; N18.3 - Chronic kidney disease, stage 3 (moderate); N18.3 - Chronic kidney disease, stage 3 ( moderate); Z79.4 - train reservation clerk (current) use of insulin; Z79.4 - group home ( current) use of insulin; Z79.4 - train reservation clerk (current) use of insulin; Z79.4 - train reservation clerk (current) use of insulin (3) Hypertension Status: Acute Qualifiers: Hypertension type: essential hypertension Qualified Code(s): I10 - Essential (primary) hypertension (4) Hypothyroidism Status: Acute Qualifiers: Hypothyroidism type: acquired Qualified Code(s): E03.9 - Hypothyroidism, unspecified (5) Morbid obesity with BMI of 50.0-59.9, adult Status: Chronic Hospital course: Ms. Duckworth is a 67 year old female - Time Spent with Patient Total time spent providing and/or coordinating discharge services: 39min Date of admission: 10/03/17 16:01 Primary care physician: Howard Landis MD - Constitutional Vitals: Temp Pulse Resp BP Pulse Ox 97.4 F L 71 14 117/56 96 10/05/17 07:27 10/05/17 07:27 10/05/17 07:27 10/05/17 07:27 10/05/17 07:27 - Attending Attestation I examined this patient and my medical decision-making was reviewed with the Resident Physician on 10/05/17. I agree with the documented findings, disposition and treatment plan as described except to the extent set forth below. Ms Duckworth has been admitted for acute UTI due to E coli. She has improved and currently is afebrile with stable vitals. She feels ready for discharge home. Exam alert Comfortable Mucus membranes dry Heart reg Lungs clear Abd soft Plan D/C home today.
== END 2017-10-05 12:10 | disposition home or self-care (01) | DRG 690 ==
LOC: EMEROO 13:37 → 3ANU 16:01 → SUATTDRO 16:01 → 3ANU 16:23
PROVIDERS: ADMIT Internal Medicine; ATTEND Internal Medicine

== ENCOUNTER 2021-11-11 18:52 | Observation (INO) ==
[2021-11-11] MEDS ORDERED: Ondansetron 4 MG/2 ML VIAL IVP ONE (19:11)
[2021-11-11] MEDS ORDERED: 0.9 % Sodium Chloride 1,000 ML IVC ONE (19:11)
[2021-11-11] MEDS ORDERED: Isovue-370 500 ML BOTTLE IVP ONE (19:11)
[2021-11-11] MEDS ORDERED: *HR* Dextrose 50 % in Water (Syg) 50 ML SYRINGE IVP ONE (19:38)
[2021-11-11 19:42] LABS: Basophils # 0.1 K/mcL (0.0-0.2); Basophils % 0.3 %; Eosinophils # 0.1 K/mcL (0.0-0.6); Eosinophils % 0.8 %; Hematocrit 37.5 % (35.3-44.9); Hemoglobin 12.3 g/dL (11.5-15.4); Immature Granulocytes % 0.3 % (0-4); Lymphocytes # 1.7 K/mcL (0.6-4.6); Lymphocytes % 11.2 %; Mean Corpuscular HGB Conc 32.8 g/dL (31.6-35.5); Mean Corpuscular Hemoglobin 30.1 pg (28.0-33.3); Mean Corpuscular Volume 91.7 fL (83.0-100.0); Mean Platelet Volume 9.5 fL (9.4-12.4); Monocytes # 0.9 K/mcL (0.0-1.3); Monocytes % 5.7 %; Neutrophils # 12.2 K/mcL (1.6-8.9); Platelet Count 359 K/mcL (140-400); Red Blood Count 4.09 M/mcL (3.82-4.97); Red Cell Distribution Width 13.9 % (11.5-14.5); Segmented Neutrophils % 81.7 %; White Blood Count 14.9 K/mcL (4.3-11.1)
[2021-11-11 19:44] LABS: Bilirubin,Urine Negative (Negative); Blood,Urine Trace (Negative); Clarity,Urine Turbid (Clear); Color,Urine Yellow (Yellow); Glucose,Urine (UA) Normal (Normal); Hyaline Casts,Urine Few per lpf (None Seen); Ketones,Urine Negative (Negative); Leukocyte Esterase,Urine Large (Negative); Mucus,Urine Few per lpf (None-Few); Nitrite,Urine Negative (Negative); Protein,Urine 30 mg/dL (Neg-Trace); Specific Gravity,Urine 1.016 (1.010-1.025); Squamous Epithelial Cell,Urine Few per hpf (None-Few); Urobilinogen,Urine Normal (Normal); WBC,Urine TNTC per hpf (0-3)
[2021-11-11 20:05] LABS: Alanine Aminotransferase 14 Units/L (7-52); Albumin 3.9 g/dL (3.5-5.7); Albumin/Globulin Ratio 1.9 (1.1-2.2); Alkaline Phosphatase 98 Units/L (34-104); Aspartate Amino Transferase 13 Units/L (13-39); BUN/Creatinine Ratio 23 (6-26); Bilirubin,Direct 0.1 mg/dL (0.0-0.2); Bilirubin,Indirect 0.6 mg/dL (0.0-1.0); Bilirubin,Total 0.7 mg/dL (0.3-1.0); Blood Urea Nitrogen 29 mg/dL (8-23); Calcium 9.4 mg/dL (8.6-10.3); Carbon Dioxide 26 mEq/L (23-29); Chloride 104 mEq/L (98-107); Globulin 2.1 g/dL (2.4-3.5); Glucose 41 mg/dL (70-105); Lipase 111 Units/L (11-82); Osmolality,Calculated 291 (280-300); Potassium 3.5 mEq/L (3.5-5.1); Sodium 139 mEq/L (136-145); Troponin I < 0.03 ng/mL (< 0.04); eGFR For African Americans 50 (> 60); eGFR For Non-African Americans 41 (> 60)
[2021-11-11] MEDS ORDERED: cefTRIAXone 1,000 MG in 0.9 % Sodium Chloride 10 ML IVP ONE (20:43)
[2021-11-11 22:06] LABS: Influenza A PCR Negative (Negative); Influenza B PCR Negative (Negative); Resp. Syncytial Virus PCR Negative (Negative)
[2021-11-11 22:07] LABS: SARS-CoV-2 by PCR (In House) Negative (Negative)
[2021-11-12] MEDS ORDERED: Melatonin 3 MG TABLET PO PRN (00:17)
[2021-11-12] MEDS ORDERED: Naloxone 0.4 MG/ML INJ IVP PRN (00:17)
[2021-11-12] MEDS ORDERED: Ondansetron 4 MG/2 ML VIAL IVP PRN (00:17)
[2021-11-12] MEDS ORDERED: Dextrose 4 GM Chewable Tablets PO PRN ×2 (00:18)
[2021-11-12] MEDS ORDERED: D5% in Water 1,000 ML IVC PRN ×2 (00:18→02:40)
[2021-11-12] MEDS ORDERED: *HR* Dextrose 50 % in Water (Syg) 50 ML SYRINGE IVP PRN (00:18)
[2021-11-12] MEDS ORDERED: 0.9 % Sodium Chloride 1,000 ML IVC SCH (00:30)
[2021-11-12 02:47] LABS: Basophils % 0.3 %; Eosinophils # 0.1 K/mcL (0.0-0.6); Eosinophils % 0.8 %; Hematocrit 36.6 % (35.3-44.9); Hemoglobin 11.8 g/dL (11.5-15.4); Immature Granulocytes % 0.3 % (0-4); Lymphocytes # 1.3 K/mcL (0.6-4.6); Lymphocytes % 10.2 %; Mean Corpuscular HGB Conc 32.2 g/dL (31.6-35.5); Mean Corpuscular Hemoglobin 29.9 pg (28.0-33.3); Mean Corpuscular Volume 92.7 fL (83.0-100.0); Mean Platelet Volume 9.7 fL (9.4-12.4); Monocytes # 0.9 K/mcL (0.0-1.3); Monocytes % 6.6 %; Neutrophils # 10.5 K/mcL (1.6-8.9); Platelet Count 318 K/mcL (140-400); Red Blood Count 3.95 M/mcL (3.82-4.97); Red Cell Distribution Width 13.9 % (11.5-14.5); Segmented Neutrophils % 81.8 %; White Blood Count 12.9 K/mcL (4.3-11.1)
[2021-11-12 03:11] LABS: Calcium 9.4 mg/dL (8.6-10.3); Phosphorous 3.6 mg/dL (2.7-4.5); Potassium 3.5 mEq/L (3.5-5.1)
[2021-11-12] MEDS: Insulin LISPRO 300 UNITS/3 ML VIAL SUBQ SCH ×4 (06:56→23:46)
[2021-11-12] MEDS ORDERED: D5% in Lactated Ringers 1,000 ML IVC SCH ×2 (07:15→11:58)
[2021-11-12] MEDS: cefTRIAXone 1,000 MG in 0.9 % Sodium Chloride 10 ML IVP SCH (08:52)
[2021-11-12] MEDS: Pantoprazole 40 MG VIAL IVP SCH (08:53)
[2021-11-12] MEDS: Carbamide Peroxide 150 DROP/15 ML BOTTLE RIGHT EAR SCH ×2 (08:55→19:44)
[2021-11-12] MEDS: Magnesium Oxide 400 MG TABLET PO SCH (19:43)
[2021-11-13 02:22] LABS: Basophils # 0.1 K/mcL (0.0-0.2); Basophils % 0.5 %; Eosinophils # 0.2 K/mcL (0.0-0.6); Eosinophils % 2.3 %; Immature Granulocytes % 0.2 % (0-4); Lymphocytes # 1.7 K/mcL (0.6-4.6); Lymphocytes % 17.5 %; Mean Corpuscular HGB Conc 32.4 g/dL (31.6-35.5); Mean Corpuscular Hemoglobin 30.6 pg (28.0-33.3); Mean Corpuscular Volume 94.7 fL (83.0-100.0); Mean Platelet Volume 9.8 fL (9.4-12.4); Monocytes # 0.8 K/mcL (0.0-1.3); Monocytes % 8.3 %; Neutrophils # 6.9 K/mcL (1.6-8.9); Platelet Count 292 K/mcL (140-400); Red Blood Count 3.59 M/mcL (3.82-4.97); Red Cell Distribution Width 14.6 % (11.5-14.5); Segmented Neutrophils % 71.2 %; White Blood Count 9.7 K/mcL (4.3-11.1)
[2021-11-13 02:29] LABS: Calcium 8.6 mg/dL (8.6-10.3); Magnesium 1.9 mg/dL (1.6-2.6); Phosphorous 3.3 mg/dL (2.7-4.5); Potassium 3.7 mEq/L (3.5-5.1)
[2021-11-13] MEDS: Insulin LISPRO 300 UNITS/3 ML VIAL SUBQ SCH ×5 (06:17→21:47)
[2021-11-13] MEDS: Pantoprazole 40 MG VIAL IVP SCH (08:23)
[2021-11-13] MEDS: Cholecalciferol (D-3) 1,000 UNIT (25MCG) TABLET PO SCH (08:23)
[2021-11-13] MEDS: Magnesium Oxide 400 MG TABLET PO SCH ×2 (08:23→20:24)
[2021-11-13] MEDS: cefTRIAXone 1,000 MG in 0.9 % Sodium Chloride 10 ML IVP SCH (08:24)
[2021-11-13 08:59] LABS: Estimated Average Glucose 194 mg/dl; Hemoglobin A1C 8.4 %
[2021-11-13] MEDS ORDERED: Perflutren Lipid Microsphere 1.3 ML in 0.9 % Sodium Chloride 8.7 ML IVP PRN ×2 (09:26→13:34)
[2021-11-13] MEDS: Carbamide Peroxide 150 DROP/15 ML BOTTLE RIGHT EAR SCH (13:27)
[2021-11-14 01:51] LABS: Basophils % 0.3 %; Eosinophils # 0.2 K/mcL (0.0-0.6); Eosinophils % 2.5 %; Hematocrit 32.8 % (35.3-44.9); Hemoglobin 10.5 g/dL (11.5-15.4); Immature Granulocytes % 0.2 % (0-4); Lymphocytes % 21.2 %; Mean Corpuscular Hemoglobin 29.9 pg (28.0-33.3); Mean Corpuscular Volume 93.4 fL (83.0-100.0); Mean Platelet Volume 9.7 fL (9.4-12.4); Monocytes # 0.8 K/mcL (0.0-1.3); Monocytes % 8.9 %; Neutrophils # 6.2 K/mcL (1.6-8.9); Platelet Count 269 K/mcL (140-400); Red Blood Count 3.51 M/mcL (3.82-4.97); Red Cell Distribution Width 14.2 % (11.5-14.5); Segmented Neutrophils % 66.9 %; White Blood Count 9.2 K/mcL (4.3-11.1)
[2021-11-14 02:07] LABS: Albumin 3.1 g/dL (3.5-5.7); Albumin/Globulin Ratio 1.3 (1.1-2.2); Bilirubin,Total 0.7 mg/dL (0.3-1.0); Calcium 8.8 mg/dL (8.6-10.3); Globulin 2.3 g/dL (2.4-3.5); Potassium 3.7 mEq/L (3.5-5.1); Total Protein 5.4 g/dL (6.4-8.9)
[2021-11-14] MEDS: Ipratropium/Albuterol Neb 3 ML IH PRN ×2 (02:43→06:19)
[2021-11-14] MEDS: Carbamide Peroxide 150 DROP/15 ML BOTTLE RIGHT EAR SCH ×2 (03:18→08:07)
[2021-11-14] MEDS: Insulin LISPRO 300 UNITS/3 ML VIAL SUBQ SCH ×2 (08:06→12:34)
[2021-11-14] MEDS: cefTRIAXone 1,000 MG in 0.9 % Sodium Chloride 10 ML IVP SCH (08:08)
[2021-11-14] MEDS: Magnesium Oxide 400 MG TABLET PO SCH (08:09)
[2021-11-14] MEDS: Pantoprazole 40 MG VIAL IVP SCH (08:09)
[2021-11-14] MEDS: Cholecalciferol (D-3) 1,000 UNIT (25MCG) TABLET PO SCH (08:09)
[2021-11-14] MEDS ORDERED: Aspirin Enteric Coated 81 MG Tablet PO SCH (09:00)
[2021-11-14] MEDS ORDERED: amLODIPine 5 MG TABLET PO SCH (09:00)
[2021-11-14 10:38] VITALS: BP 131/69; PULSE 75; TEMP 98.1
[2021-11-14] MEDS ORDERED: *HR* Heparin 5,000 UNIT/ML VIAL SQ SCH (14:00)
[2021-11-14 16:00] VITALS: O2SAT 95
[2021-11-14] MEDS ORDERED: Insulin DETEMIR 100 UNIT/ML X5UNITS SUBQ SCH (21:00)
== END 2021-11-14 18:24 | disposition home or self-care (01) ==
LOC: EMEROOARM 18:52 → 3ANU 18:52 → SUATTDRO 23:01 → 3ANU 11-12 00:01
PROVIDERS: ADMIT Internal Medicine; ATTEND Registered Nurse